=== PATIENT | male | born 1945 | race Caucasian/White ===

== ENCOUNTER 2017-02-16 11:51 | Inpatient (IN) | payer OTHER ==
[~2017-02-16] VITALS: Ht 170.2 cm; Wt 73.9 kg
--- NOTE | ~2017-02-16 | EKG ---
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1945 Requested By: Olegario Escamilla Order Number: [id number] MD: Measurements Intervals [place] Rate: 82 P: GA: QRS: -66 QRSD: 123 T: 40 QT: 440 QTc: 514 Interpretive Statements Atrial fibrillation Ventricular premature complex Nonspecific IVCD with LAD Inferior infarct, old Lateral leads are also involved Artifact in lead(s) I,II,III,aVR,aVL,aVF Compared to ECG 02/16/2017 11:54:40 Ventricular premature complex(es) now present Intraventricular conduction delay now present Right bundle-branch block no longer present Myocardial infarct finding still present [email or web address] By: 1133 113 Epiphany EpiphanyMD /CEM
--- NOTE | ~2017-02-16 | HC ---
[facility] [place] [address] CONSULTATION Name: DARRICK JUAREZ Room #: 464-P ADM IN M.R.#: [id number] Admission: 02/16/17 Attend Phys: Becca Gonzalez MD Discharge: Date of : 43 Report #: [id number] THIS REPORT FOR: //name// CC: Omega Gonzalez REASON FOR CONSULTATION: Arrhythmia. HISTORY OF PRESENT ILLNESS: The patient is a 71-year-old with a history of coronary artery disease status post coronary artery bypass grafting and aortic valve replacement who presented to the hospital with worsening abdominal pain and jaundice. He was found to have a gallstone at the common bile duct. The plan was to have him undergo ERCP today, but he started having some arrhythmias noted on telemetry. I reviewed his telemetry which shows that he is having brief runs of atrial tachycardia. He has had some of this on EKG as well. For the most part he is in sinus rhythm. There is no clear atrial fibrillation noted. He denies any chest pain or chest tightness. He denies any PND or orthopnea. He denies presyncope or syncope. REVIEW OF SYSTEMS: A 12-point review of systems was otherwise negative other than the GI symptoms mentioned above. PAST MEDICAL HISTORY: 1. Coronary artery disease, status post coronary artery bypass graft. 2. Aortic valve replacement. 3. Hypertension. Medications at home include metoprolol, Lipitor. ALLERGIES: INCLUDE . SOCIAL HISTORY: He does not smoke. FAMILY HISTORY: Noncontributory. PHYSICAL EXAMINATION: VITAL SIGNS: Reviewed, temperature is 36.8, pulse 113, respiration 20, blood pressure 120/50, sats 100%. GENERAL: He is in no acute distress. He is slightly jaundiced. HEENT: His oropharynx is clear. NECK: Supple, with no thyromegaly or carotid bruits. HEART: Regular rate and rhythm with occasional ectopic beats. There are no murmurs. LUNGS: He does not have elevated jugular venous pressures. CHEST: Lungs are clear to auscultation bilaterally. ABDOMEN: Soft, nontender, nondistended with no hepatosplenomegaly. There is no rebound. [facility] [address] [place] [address] CONSULTATION Name: DARRICK JUAREZ Room #: 464-P ADM IN M.R.#: [id number] Admission: 02/16/17 Attend Phys: Becca Gonzalez MD Discharge: Date of : 43 Report #: [id number] EXTREMITIES: There is no clubbing, cyanosis, edema. NEUROLOGIC: Cranial nerves 2-12 are intact. LABORATORY DATA: Reviewed. White cell count is 5.3, hemoglobin is 13, platelets are 192. His sodium 140, potassium 4.0. His creatinine is 1.2, his total bilirubin is 3.3. AST 300, ALT 600, alkaline phosphatase 500. EKG shows sinus rhythm with no ischemic changes, another EKG showed some brief runs of atrial tachycardia, but no atrial fibrillation. IMPRESSION: In summary, the patient is a 71-year-old with known coronary artery disease status post coronary artery bypass grafting and aortic valve replacement who is having some episodes of atrial tachycardia, frequent PVCs. To treat this, we will start the patient on beta stacie and I will also load the patient with IV digoxin. From a cardiovascular standpoint, I feel that he will be okay to undergo his ERCP tomorrow. <ELECTRONICALLY SIGNED> By: Donald Styles MD 02/19/17 1523 1726 0620 Donald Styles MD /nt
--- NOTE | ~2017-02-16 | 2DMMODE ---
[facility] [address] [place] [address] 2 D/M-MODE ECHOCARDIOGRAM Name: DARRICK JUAREZ Room #: 464-P ADM IN M.R.#: [id number] Admission: 02/16/17 Attend Phys: Becca Gonzalez MD Discharge: Date of : 43 Date of Service: 02/19/17 1535 Report #: [id number] THIS REPORT FOR: //name// APPROVED REPORT Study performed: 02/19/2017 13:31:41 EXAM: Comprehensive 2D, Doppler, and color-flow Echocardiogram Patient Location: Bedside Room #: 464 Blood Pressure: 119/85 mmHg HR: 90 bpm Rhythm: Atrial Fibrillation Other Information Study Quality: GoodAdequate Indications Dyspnea CAD Hypertension/HDD CABG, AVR 07/10 2D Dimensions LVEF(%): 64.09 (>50%) IVSd: 12.56 (7-11mm) LVOT Diam: 16.00 (18-24mm) LVDd: 42.89 mm PWd: 12.81 (7-11mm) Ascending Ao: 27.19 (22-36mm) LVDs: 28.04 (25-40mm) Aortic Root: 28.58 mm Hi's LVEF: 64.09 % Volumes Left Atrial Volume (Systole) Single Plane 4CH: 54.20 mL Single Plane 2CH: 54.27 mL LA ESV Index: 34.00 mL/m2 Aortic Valve AoV Peak Alonzo.: 2.68 m/s AO Peak Gr.: 16.23 mmHg LVOT Max P.08 mmHg AO Mean Gr.: 15.24 mmHg LVOT Mean P.90 mmHg LVOT Max V: 0.92 m/s [facility] [address] [address] 2 D/M-MODE ECHOCARDIOGRAM Name: DARRICK JUAREZ Room #: 464- ADM IN ..#: [id number] Admission: 02/16/17 Attend Phys: Becca Gonzalez MD Discharge: Date of : 43 Date of Service: 02/19/17 1535 Report #: [id number] V2 VTI: 52.88 cm LVOT Mean V: 0.65 m/s DARIN (VTI): 0.86 cm2 LVOT V1 VTI: 23.34 cm AI Vmax: 2.47 m/s SV (LVOT): 45.26 mL AI Wallace: 1.64 m/s2 AI PHT: 435.94 ms Pulmonary Valve PV Peak Alonzo.: 0.82 m/s PV Peak Gr.: 2.70 mmHg Tricuspid Valve RAP Estimate: 5.00 mmHg Left Ventricle The left ventricle is normal size. There is normal LV segmental wall motion. Mild concentric left ventricular hypertrophy. Left ventricular systolic function is normal. The left ventricular ejection fraction is within the normal range. LVEF is 55-60%. This study is not technically sufficient to allow evaluation of the LV diastolic function due to atrial fibrillation. Right Ventricle The right ventricle is normal size. The right ventricular systolic function is normal. Atria The left atrium size is normal. The right atrium size is normal. Aortic Valve Aortic valve is not well visualized. Bioprosthetic aortic valve is present. Mild aortic regurgitation. There is no aortic valvular stenosis. Mitral Valve The mitral valve is normal in structure. Mild mitral regurgitation. No evidence of mitral valve stenosis. Tricuspid Valve The tricuspid valve is normal in structure. Trace tricuspid regurgitation. Pulmonic Valve The pulmonary valve is normal in structure. Mild to moderate pulmonic regurgitation. [employer] Vessels [facility] [address] [place] [address] 2 D/M-MODE ECHOCARDIOGRAM Name: DARRICK JUAREZ Room #: 464-P [facility] IN .R.#: [id number] Admission: 02/16/17 Attend Phys: Becca Gonzalez MD Discharge: Date of : 43 Date of Service: 02/19/17 1535 Report #: [id number] The aortic root is normal in size. IVC is normal in size and collapses with >50% inspiration Pericardium There is no pericardial effusion. <Conclusion> The left ventricle is normal size. LVEF is 55-60%. Bioprosthetic aortic valve is present. Mild aortic regurgitation. The mitral valve is normal in structure. Mild mitral regurgitation. The tricuspid valve is normal in structure. Trace tricuspid regurgitation. Mild to moderate pulmonic regurgitation. <ELECTRONICALLY SIGNED> By: Antonio Brower MD 02/19/17 1535 1535 1535 Antonio Brower MD /INF
--- NOTE | ~2017-02-16 | EKG ---
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1945 Requested By: Aubrey Govea Order Number: [id number] MD: Kj Ray Measurements Intervals [place] Rate: 85 P: -28 AL: 160 QRS: -71 QRSD: 134 T: 70 QT: 407 QTc: 484 Interpretive Statements Sinus rhythm Multiple premature complexes, supraven Right bundle branch block Inferior infarct, old Artifact in lead(s) I,III,aVR,aVL,aVF,V4,V6 Compared to ECG 02/16/2017 11:54:40 No significant changes Electronically Signed On 02-19-2017 8:22:40 CDT by Kj Ray [email or web address] <ELECTRONICALLY SIGNED> By: Kj Ray MD, [facility] 02/19/17 0822 1131 1131 Kj Ray MD, [facility] /EPI
--- NOTE | ~2017-02-16 | EKG ---
[address] [place] [address] ELECTROCARDIOGRAM REPORT Name: DARRICK JUAREZ Room #: 464-P ADM IN M.R.#: [id number] Admission: 02/16/17 Attend Phys: Becca Gonzalez MD Discharge: Date of : 43 Report #: [id number] THIS REPORT FOR: //name// 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 : 1945 Requested By: Sera Casper Order Number: [id number] MD: Kj Ray Measurements Intervals [place] Rate: 120 P: 87 [place]: 70 QRS: -95 QRSD: 126 T: 81 QT: 352 QTc: 498 Interpretive Statements Probable multifocal atrial tachycardia Right bundle branch block Inferior infarct, age indeterminate Lateral leads are also involved Artifact in lead(s) I,III,aVR,aVL,aVF No previous ECG available for comparison Electronically Signed On 02-18-2017 8:08:03 CDT by Kj Ray [email or web address] <ELECTRONICALLY SIGNED> By: Kj Ray MD, [facility] 02/18/17 0808 1154 1154 Kj Ray MD, [facility] /EPI
--- NOTE | ~2017-02-16 | P ---
[facility] [place] [address] PROCEDURE REPORT Name: DARRICK JUAREZ Room #: 464-P [facility] IN M.R.#: [id number] Admission: 02/16/17 Attend Phys: Becca Gonzalez MD Discharge: 02/21/17 Date of : 43 Report #: [id number] THIS REPORT FOR: //name// CC: Omega Olmstead MD DATE OF SERVICE: 02/19/2017 PROCEDURE PERFORMED: ERCP with sphincterotomy and stone removal. HISTORY OF PRESENT ILLNESS: The patient is a 71-year-old male with history of jaundice, elevated liver function tests. Total bilirubin peaked at 4.4 on admission, today it is 2.9. He has got an AST of 312, alkaline phosphatase of 525, ALT is 651. He underwent an ultrasound of the abdomen on 02/16/2017, which was unremarkable. No evidence of ductal dilation at that time. He then underwent an MRCP the following day on the , which showed a partially obstructing choledocholithiasis with 9 mm oval common bile duct stone identified. A cyst-like structure was noted within the region of the gallbladder fossa, plan is for ERCP. DESCRIPTION OF PROCEDURE: The risks and benefits of the procedure were explained to the patient, those risks including but not limited to bleeding, perforation, the risk of sedation as well as the potential risk for post-ERCP pancreatitis. He understood these risks and gave informed consent. The procedure was performed in the interventional radiology suite under general anesthesia. The patient was given IV Cipro prior to the procedure as well as an indomethacin 50 mg rectal suppository. Next, using a standard Fujinon side-viewing ERCP scope, the scope was placed in the patient's mouth and advanced under direct vision through the esophagus, stomach and into the second portion of the duodenum. The major papilla was identified and normal in appearance. Next, using a Da-Cook 0.025 dome tipped catheter, common bile duct was cannulated without difficulty and a cholangiogram was obtained. This showed a significantly dilated common bile duct at about 12 mm and a single large stone was noted in the mid to distal common bile duct. The intrahepatic ducts were normal. The cystic duct did not fill. At this point, a guidewire was advanced into the intrahepatic ducts and a sphincterotomy was performed without difficulty. Next, the sphincterotome was removed and a balloon catheter was then advanced over the guidewire above the stone. The balloon was then inflated and the stone was removed without difficulty. There was a small amount of bleeding near the sphincterotomy site when the large stone was removed. I did place pressure with the balloon catheter for a short period of time. No further bleeding was noted. Several more balloon sweeps were then performed. No further filling defects were noted. At this point, the scope was then [address] [address] PROCEDURE REPORT Name: DARRICK JUAREZ Room #: 464-P DIS IN M.R.#: [id number] Admission: 02/16/17 Attend Phys: Becca Gonzalez MD Discharge: 02/21/17 Date of : 43 Report #: [id number] withdrawn and the procedure terminated. The patient tolerated the procedure well. IMPRESSION: 1. Single common bile duct stone, status post sphincterotomy and removal. 2. Dilated common bile duct. 3. Normal intrahepatic ducts. RECOMMENDATIONS: Observe the patient post-procedure and continue to monitor liver function tests. Thank you for allowing me to participate in his care. By: 1136 1608 Olegario Escamilla MD /nt
[2017-02-16 11:52] VITALS: BP 156/90
[2017-02-16] MEDS ORDERED: TOPROL XL25 MG PO (12:16)
[2017-02-16] MEDS ORDERED: ATORVASTATIN CA40 MG PO (12:16)
[2017-02-16 12:21] LABS: ABSOLUTE NEUTROPHILS 6.5 thou/uL (1.4-8.2); BASOPHILS 0.3 % (0.0-2.0); EOSINOPHILS 0.9 % (0.0-3.0); HEMATOCRIT 41.8 % (42.0-52.0); HEMOGLOBIN 14.2 gm/dL (14.0-18.0); LYMPHOCYTES 15.9 % (24.0-44.0); MCH 30.5 pg (26.0-34.0); MCHC 33.9 g/dL (28.0-37.0); MCV 89.9 fL (80.0-100.0); MONOCYTES 7.4 % (1.0-8.0); PLATELET COUNT 222 thou/uL (150-400); POLYS 75.5 % (36.0-66.0); RBC 4.64 mil/uL (4.50-6.00); RDW 15.3 % (10.5-14.5); WBC 8.6 thou/uL (4.0-11.0)
[2017-02-16 12:22] LABS: MANUAL DIFF NO
[2017-02-16 12:28] LABS: ANION GAP 11 mmol/L (7-16); BUN 18 mg/dL (7-18); CALCIUM 8.8 mg/dL (8.5-10.1); CHLORIDE 102 mmol/L (98-107); CO2 26 mmol/L (21-32); CREATININE 1.2 mg/dL (0.7-1.3); GLUCOSE 140 mg/dL (74-106); POTASSIUM 3.5 mmol/L (3.5-5.1); SODIUM 139 mmol/L (136-145)
[2017-02-16 12:41] LABS: ALBUMIN 3.3 g/dL (3.4-5.0); ALKALINE PHOSPHATASE 474 U/L (46-116); DIRECT BILIRUBIN 3.7 mg/dL (<0.1-0.3); SGOT 314 U/L (15-37); SGPT 696 U/L (30-65); TOTAL BILIRUBIN 4.4 mg/dL (<0.1-1.0); TOTAL PROTEIN 7.2 g/dL (6.4-8.2); TROPONIN-I < 0.04 ng/mL (<0.04-0.07)
[2017-02-16 13:41] LABS: INR 1.1; PROTIME 11.8 Seconds (9.3-11.4)
[2017-02-16 14:00] VITALS: BP 160/96
[2017-02-16 14:45] VITALS: BP 170/108
[2017-02-16 18:22] LABS: TROPONIN-I < 0.04 ng/mL (<0.04-0.07)
[2017-02-16 19:59] VITALS: BP 130/90
[2017-02-16 22:06] LABS: HEPATITIS C VIRUS AB <0.1 (0.0-0.9)
[2017-02-17 00:23] LABS: ABSOLUTE NEUTROPHILS 5.5 thou/uL (1.4-8.2); BASOPHILS 0.8 % (0.0-2.0); EOSINOPHILS 1.8 % (0.0-3.0); HEMATOCRIT 37.4 % (42.0-52.0); HEMOGLOBIN 12.8 gm/dL (14.0-18.0); LYMPHOCYTES 17.6 % (24.0-44.0); MCH 30.6 pg (26.0-34.0); MCHC 34.1 g/dL (28.0-37.0); MCV 89.8 fL (80.0-100.0); MONOCYTES 10.3 % (1.0-8.0); PLATELET COUNT 206 thou/uL (150-400); POLYS 69.5 % (36.0-66.0); RBC 4.17 mil/uL (4.50-6.00); RDW 15.2 % (10.5-14.5); WBC 7.9 thou/uL (4.0-11.0)
[2017-02-17 00:27] LABS: MANUAL DIFF NO
[2017-02-17 01:06] LABS: ALBUMIN 2.7 g/dL (3.4-5.0); CALCIUM 8.6 mg/dL (8.5-10.1); CREATININE 1.4 mg/dL (0.7-1.3); POTASSIUM 3.7 mmol/L (3.5-5.1); TOTAL BILIRUBIN 3.3 mg/dL (<0.1-1.0); TOTAL PROTEIN 6.2 g/dL (6.4-8.2); TROPONIN-I 0.04 ng/mL (<0.04-0.07)
[2017-02-17 01:24] LABS: % SATURATION 31 % (20-39); IRON 85 ug/dL (65-175); TIBC 277 ug/dL (250-450); UIBC 192 ug/dL
[2017-02-17 03:30] VITALS: BP 164/94
[2017-02-17 07:41] VITALS: BP 147/80
[2017-02-17 11:05] LABS: IgG 761 mg/dL (700-1600)
[2017-02-17 11:41] VITALS: BP 121/58
[2017-02-17 15:48] VITALS: BP 124/76
[2017-02-17 19:33] VITALS: BP 129/75
[2017-02-18 04:35] VITALS: BP 162/95
[2017-02-18 06:23] LABS: HEMATOCRIT 39.8 % (42.0-52.0); HEMOGLOBIN 13.4 gm/dL (14.0-18.0); MCH 30.6 pg (26.0-34.0); MCHC 33.6 g/dL (28.0-37.0); MCV 91.1 fL (80.0-100.0); RBC 4.37 mil/uL (4.50-6.00); RDW 16.3 % (10.5-14.5); WBC 5.3 thou/uL (4.0-11.0)
[2017-02-18 06:41] LABS: ALBUMIN 2.9 g/dL (3.4-5.0); CALCIUM 8.2 mg/dL (8.5-10.1); CREATININE 1.2 mg/dL (0.7-1.3); TOTAL BILIRUBIN 3.3 mg/dL (<0.1-1.0); TOTAL PROTEIN 6.8 g/dL (6.4-8.2)
[2017-02-18 08:00] VITALS: BP 150/94
[2017-02-18 08:30] VITALS: BP 120/50
[2017-02-18 16:30] VITALS: BP 158/90
[2017-02-18 19:59] VITALS: BP 166/87
[2017-02-19 04:22] VITALS: BP 134/86
[2017-02-19 05:56] LABS: HEMATOCRIT 40.2 % (42.0-52.0); HEMOGLOBIN 13.5 gm/dL (14.0-18.0); MCH 30.6 pg (26.0-34.0); MCHC 33.7 g/dL (28.0-37.0); RBC 4.41 mil/uL (4.50-6.00); RDW 16.5 % (10.5-14.5)
[2017-02-19 06:05] LABS: INR 1.1; PROTIME 11.4 Seconds (9.3-11.4)
[2017-02-19 06:09] LABS: ALBUMIN 2.9 g/dL (3.4-5.0); CALCIUM 8.4 mg/dL (8.5-10.1); CREATININE 1.1 mg/dL (0.7-1.3); POTASSIUM 3.6 mmol/L (3.5-5.1); TOTAL BILIRUBIN 2.8 mg/dL (<0.1-1.0); TOTAL PROTEIN 6.6 g/dL (6.4-8.2)
[2017-02-19 06:16] LABS: DIRECT BILIRUBIN 2.1 mg/dL (<0.1-0.3); TOTAL BILIRUBIN 2.9 mg/dL (<0.1-1.0); TOTAL PROTEIN 6.6 g/dL (6.4-8.2)
[2017-02-19 07:54] VITALS: BP 116/56
[2017-02-19 08:00] VITALS: BP 119/85
[2017-02-19 15:17] VITALS: BP 139/77
[2017-02-19 20:58] VITALS: BP 144/80
[2017-02-20 04:19] VITALS: BP 139/83
[2017-02-20 04:57] LABS: HEMATOCRIT 39.2 % (42.0-52.0); HEMOGLOBIN 12.9 gm/dL (14.0-18.0); MCH 30.5 pg (26.0-34.0); MCV 92.5 fL (80.0-100.0); RBC 4.24 mil/uL (4.50-6.00); RDW 16.3 % (10.5-14.5); WBC 5.9 thou/uL (4.0-11.0)
[2017-02-20 05:08] LABS: ALBUMIN 2.8 g/dL (3.4-5.0); CALCIUM 8.2 mg/dL (8.5-10.1); CREATININE 1.2 mg/dL (0.7-1.3); DIRECT BILIRUBIN 0.8 mg/dL (<0.1-0.3); TOTAL BILIRUBIN 1.7 mg/dL (<0.1-1.0); TOTAL PROTEIN 6.5 g/dL (6.4-8.2)
[2017-02-20 07:28] VITALS: BP 156/85
[2017-02-20 11:27] VITALS: BP 140/71
[2017-02-20 15:40] VITALS: BP 154/73
[2017-02-20 20:12] VITALS: BP 153/75
[2017-02-21 03:21] VITALS: BP 173/77
[2017-02-21 04:23] VITALS: BP 169/72
[2017-02-21 05:06] LABS: HEMATOCRIT 35.8 % (42.0-52.0); HEMOGLOBIN 12.1 gm/dL (14.0-18.0); MCH 30.8 pg (26.0-34.0); MCHC 33.7 g/dL (28.0-37.0); MCV 91.4 fL (80.0-100.0); RBC 3.91 mil/uL (4.50-6.00); RDW 15.9 % (10.5-14.5); WBC 6.8 thou/uL (4.0-11.0)
[2017-02-21 05:18] LABS: ALBUMIN 2.7 g/dL (3.4-5.0); CALCIUM 8.8 mg/dL (8.5-10.1); CREATININE 1.2 mg/dL (0.7-1.3); POTASSIUM 4.4 mmol/L (3.5-5.1); TOTAL BILIRUBIN 1.3 mg/dL (<0.1-1.0); TOTAL PROTEIN 6.5 g/dL (6.4-8.2)
[2017-02-21 07:54] VITALS: BP 169/72
[2017-02-21 08:29] VITALS: BP 201/86
[2017-02-21 09:37] VITALS: BP 176/75
== END 2017-02-21 10:45 | disposition home or self-care (01) | DRG 445 ==
LOC: ER 11:51 → EROBS 13:10 → 4W 13:10
PROVIDERS: Emergency Medicine; Family Medicine; Hospitalist; Internal Medicine Gastroenterology; Nurse Practitioner Adult Health
PROC: 0FC98ZZ Extirpation of Matter from Common Bile Duct, Via Natural or Artificial Opening Endoscopic (ICD-10-PCS; principal; 2017-02-19)
DX: K80.51 Calculus of bile duct without cholangitis or cholecystitis with obstruction (principal); I47.1 Supraventricular tachycardia; R17 Unspecified jaundice; E44.1 Mild protein-calorie malnutrition; K52.9 Noninfective gastroenteritis and colitis, unspecified; K80.81 Other cholelithiasis with obstruction; I25.10 Atherosclerotic heart disease of native coronary artery without angina pectoris; I10 Essential (primary) hypertension; E78.5 Hyperlipidemia, unspecified; Z96.661 Presence of right artificial ankle joint; I48.91 Unspecified atrial fibrillation; Z68.25 Body mass index [BMI] 25.0-25.9, adult; Z95.2 Presence of prosthetic heart valve; Z95.1 Presence of aortocoronary bypass graft; Z90.49 Acquired absence of other specified parts of digestive tract; I25.2 Old myocardial infarction; Z79.899 Other long term (current) drug therapy; Z80.9 Family history of malignant neoplasm, unspecified
CPT/HCPCS: 10045; 62110; 62900; 70005